=== PATIENT | female | born 1955 | race Caucasian/White ===

== ENCOUNTER 2022-09-13 | Inpatient (IN) | payer MEDICARE ==
[~2022-09-13] VITALS: Ht 162.6 cm; Wt 94.0 kg
[2022-09-13 21:56] VITALS: BP 149/94
[2022-09-13] MEDS ORDERED: OMEP20ER PO (21:59)
[2022-09-14] VITALS (14 sets, daily range): BP systolic 106–158; BP diastolic 62–101
[2022-09-14 00:07] LABS: Anti-Xa UFH, PHA Monitoring <0.10 IU/mL; International Normalized Ratio 0.96; Prothrombin Time Results 10.1 Sec (9.7-11.5)
[2022-09-14 03:36] LABS: BASOPHILS ABSOLUTE AUTO 0.06 K/mm3 (0.00-0.23); BASOPHILS PERCENT AUTO 1 % (0-2); EOSINOPHILS ABSOLUTE AUTO 0.24 K/mm3 (0.00-0.68); EOSINOPHILS PERCENT AUTO 3 % (0-6); Hematocrit 38.9 % (33.0-51.0); IMMATURE GRAN ABSOLUTE AUTO 0.01 K/mm3 (0.00-0.10); IMMATURE GRAN PERCENT AUTO 0 % (0-1); LYMPHOCYTES ABSOLUTE AUTO 4.15 K/mm3 (0.84-5.20); LYMPHOCYTES PERCENT AUTO 46 % (21-46); MONOCYTES ABSOLUTE AUTO 0.71 K/mm3 (0.16-1.47); MONOCYTES PERCENT AUTO 8 % (4-13); Mean Corpuscular HGB 30.2 pg (26.0-34.0); Mean Corpuscular HGB Conc 33.4 g/dL (31.5-36.5); Mean Corpuscular Volume 90 fL (80-100); Mean Platelet Volume 8.3 fL (9.1-12.4); NEUTROPHILS ABSOLUTE AUTO 3.77 K/mm3 (1.96-9.15); NEUTROPHILS PERCENT AUTO 42 % (41-73); Platelet Count 247 K/mm3 (150-400); RDW Coefficient Variation 13.1 % (11.7-14.2); RDW Standard Deviation 43.8 fL (35.1-46.3); Red Blood Cell Count 4.31 M/mm3 (3.80-5.20); White Blood Cell Count 8.94 K/mm3 (4.00-11.30)
[2022-09-14 03:54] LABS: Alanine Aminotransfer (ALT/SGP 25 U/L (12-78); Albumin, Blood 3.2 g/dL (3.4-5.0); Albumin/Globulin Ratio 0.9 (0.8-1.8); Alk Phos 45 U/L (50-136); Anion Gap 1 mmol/L (6-16); Aspartate Aminotrans (AST/SGOT 18 U/L (12-37); Bilirubin, Total 0.6 mg/dL (0.1-1.0); Blood Urea Nitrogen 18 mg/dL (8-24); Bun/Creatinine Ratio 20.9 (12.0-20.0); CHOL/HDL RATIO 3.9; CO2, Blood 29 mmol/L (21-32); Calcium, Blood 9.2 mg/dL (8.5-10.1); Chloride, Blood 109 mmol/L (98-108); Cholesterol 216 mg/dL (50-200); Creatinine, Blood 0.86 mg/dL (0.40-1.00); Globulin, Blood 3.7 g/dL (2.2-4.0); Glomerular Filtration Rate 74 (60-); Glucose, Blood 111 mg/dL (70-99); HDL Cholesterol 56 mg/dL (>39); LDL/HDL RATIO 2.5; Low Density Lipoprotein Chol 137 mg/dL (0-110); Potassium, Blood 3.9 mmol/L (3.5-5.5); Sodium, Blood 139 mmol/L (136-145); Total Protein, Blood 6.9 g/dL (6.4-8.2); Triglycerides 114 mg/dL (30-160); Very Low Density Lipoprot Chol 22 mg/dL (6-32)
--- NOTE | 2022-09-14 06:56 | NUR ---
SHIFT SUMMARY PATIENT IS A DIRECT ADMIT FROM [facility]. SHE IS ALERT AND ORIENTED X4 AND ABLE TO AMBULATE INDEPENDENTLY. PATIENT DENIES CHEST PAIN, VITAL SIGNS HAVE BEEN STABLE. LAST TROPONIN 369, PATIENT ON A HEPARIN DRIP AT 15 UNITS/KG/HR. RESPIRATORY WNL. NO ACUTE ISSUES NOTED OVERNIGHT. WILL CONTINUE TO MONITOR. CALL LIGHT WITHIN REACH.
--- NOTE | 2022-09-14 07:30 | NUR ---
PT is awake, alert and oriented. Denies having any symptoms since yesterday evening. Heparin gtt infusing and verfied dose with eMAR. Cardiology consult was called to answering service. Troponins still not trending down; will ask about another draw until trending down. Noted Echo ordered, but has not been done yet. Pt's son Cabrera is at the bedside.
[2022-09-14 10:43] LABS: Source, Urine Clean Catch
[2022-09-14 10:45] LABS: Appearance, Urine Clear (Clear); Bilirubin, Urine Neg (Neg); Blood, Urine 1+ (Neg); Color, Urine Yellow (P-Yellow); Glucose Qualitative, Urine Neg (Neg); Ketones, Urine Neg (Neg); Leukocyte Esterase, Urine 1+ (Neg); Nitrite, Urine Neg (Neg); Protein, Urine 1+ (Neg); Urobilinogen, Urine NORM (Normal)
[2022-09-14 10:52] LABS: Bacteria Mod /hpf; Mucus Light (0-Heavy); Red Blood Cells, Urine 0-2 /hpf (0-2); Squamous Epithelial Cells Few /hpf (Few)
--- NOTE | 2022-09-14 15:31 | NUR ---
Pt returned from general labor at approx 1500. Right radial site with [address] There was a hematoma proximal to the site upon arrival, and TR bands were adjusted by [facility] from the [facility]. Pt has palpable pulse distal to the TR band, fingers are dark red but she denies pain in the hand/fingers/arm, and denies numbness /tingling in her hand. Denies any other symptoms. Vital signs are stable, blood pressure is greater than 130 mm HG systolic. Sinus rhythm with frequent PVCs noted by telemetry. Spo2 97% measured on the right hand, index finger.
--- NOTE | 2022-09-14 16:21 | NUR ---
Pt is sitting up in bed, eating finger food tray. Echo was completed. She denies any symptoms of dyspnea. Also denies pain/numbness/tingling in the right arm. Noted that the area of swelling proximal to the proximal TR has passed the demarkated area by about 2 cm. It is soft, and not bruised. Proximal to the TR band on the wrist is an area which is bruised, now more visibly than upon arrival. It is swollen, soft, and pt denies pain. Palpable pulse over the radial artery. White immoblizer board was put back in place and the arm is elevated on 2 pillows to reduce swelling.
--- NOTE | 2022-09-14 16:41 | NUR ---
2 cc air removed from the distal TR band. Swelling proximal to the site is reduced after elevation of the arm for 15 minutes. The wrist area is dark red, as the hand and fingers are also swollen, but soft, and dark red. After the air removal there is cap refill which is 3-4 seconds, quicker than noted before the air removal. Pt denies any pain in the hand, arm, wrist. Arm is elevated on 2 pillows. Up with assist to bedside commode and noted urine is obviously red, changed from before the procedure when urine was yellow. Pt states that she has not seen that much blood in urine before.
--- NOTE | 2022-09-14 16:54 | NUR ---
3CC Air removed from the proximal TR band, and 2 cc removed from distal TR band. Site is bruised at the wrist; color of the hand and fingers much improved, with brisk capillary refill. Palpable pulses distal to the TR band on wrist.
--- NOTE | 2022-09-14 18:16 | NUR ---
TR band fully deflated at this time. Swelling proximally to TR bands is without bruising, and is soft to palpation. The pt has been keeping her right arm elevated. Wrist area is pale, with purplish blue bruising. Ulnar and radial pulses are palpable. Color of the hand and fingers is pink with brisk capillary refill. Pt has not complained of any pain/numbness/tingling until now. At this time she says that she is having some burning underneath the TR band. No bleeding under the TR band. beef ribber Zenaida is also in the room, and the site was assessed together. Decision made to remove TR bands in one hour, and restart heparin 1 hour after that, per Dr. Mistry's order, if the site remains stable. Pt is sitting up in bed, after using the bathroom to void. She says that she is tired. Room lights dimmed for her rest. Her urine is bright red. No blood clots noted.
--- NOTE | 2022-09-14 18:45 | NUR ---
Pt states she feels a little nauseated. Given zofran per prn orders.
--- NOTE | 2022-09-14 21:00 | NUR ---
PATIENT TAKEN BY AMBULANCE FOR TRANSFER TO [facility]. CALLED RECEIVING DANITA OLMSTEAD TO UPDATE ON TIME OF ARRIVAL. NOTIFIED PATIENT'S DAUGHTER OF PATIENT TRANSFER AND WHAT ROOM PATIENT WILL BE GOING TO.
== END 2022-09-14 20:50 | disposition short-term general hospital (02) | DRG 282 ==
LOC: PCU 20:29
PROVIDERS: Family Medicine; Internal Medicine Cardiovascular Disease; ADMIT Internal Medicine
PROC: 4A023N7 Measurement of Cardiac Sampling and Pressure, Left Heart, Percutaneous Approach (ICD-10-PCS; principal; 2022-09-14)
PROC: B211YZZ Fluoroscopy of Multiple Coronary Arteries using Other Contrast (ICD-10-PCS; 2022-09-14)
DX: I21.4 Non-ST elevation (NSTEMI) myocardial infarction (principal); E78.5 Hyperlipidemia, unspecified; E66.9 Obesity, unspecified; K21.9 Gastro-esophageal reflux disease without esophagitis; G62.9 Polyneuropathy, unspecified; I25.110 Atherosclerotic heart disease of native coronary artery with unstable angina pectoris; I10 Essential (primary) hypertension; R82.81 Pyuria; R31.9 Hematuria, unspecified; Z68.35 Body mass index [BMI] 35.0-35.9, adult; Z98.891 History of uterine scar from previous surgery; Z79.899 Other long term (current) drug therapy
CPT/HCPCS: 36415; 76937; 80053; 80061; 81001; 84484; 85025; 85520; 85610; 85730; 87086; 92920; 93005; 93010; 93306; 93458; 94762; 99152; 99153; A9270; C1769; C1887; C1894; C9113; G0378; J1644; J2250; J3010; J3246; J7030; J7040; J7050; Q9967